=== PATIENT | male | born 1945 | race Hispanic/Latino ===

== ENCOUNTER 2018-09-04 04:47 | Inpatient (IN) | payer MEDICARE, MEDICAID ==
[2018-09-04] MEDS ORDERED: hydrALAZINE 20 MG/ML VIAL SLOW IVP PRN (07:51)
--- NOTE | 2018-09-04 08:09 | RAD ---
FRONTAL RADIOGRAPH LOWER CHEST: DATE: 09/04/2018. HISTORY: Evaluate nasogastric tube. FINDINGS: A coned-down frontal radiograph of the lung bases and upper abdomen provided. Image demonstrates a n asogastric tube curling in the mid epigastric region. Lung bases and upper abdomen are not well asse ssed on this examination secondary to portable technique and field of view. Dilated loops of small b owel are seen within the imaged abdomen suggesting small bowel obstruction. IMPRESSION: Nasogastric tube as above. POS: [facility]
--- NOTE | 2018-09-04 08:10 | HP ---
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 The patient is retired. Today i s Friday and on Friday the patient began experiencing nausea. Friday he experienced nausea, vomitin g and diarrhea. He has not had a bowel movement since yesterday. In the last 48-72 hours he has exp erienced progressive abdominal distention, although has not had any vomiting in the last 24 hours and as noted above, not had a bowel movement in the last 24 hours. He was seen in [place] initiall y and evaluated. He lives in [place] with his . His daughter accompanies him to the emergency ro om this morning at [facility] [place] he was transferred. CAT scan in [place] revealed presen ce of an inferior vena cava filter and changes suggestive of possible bowel obstruction. The patient has not had any abdominal operations, has never had a colonoscopy. Bowel function was normal prior to this event. He is on Coumadin for probable hypercoagulable state and past history of DVT and 2 PE s and maintained on Coumadin. In addition, his CAT scan noted fat containing bilateral inguinal annabella ias, but there are no palpable inguinal masses and no evidence of obstructive process here. A 16 [facility] NG tube placed in [place] at 0200. The patient's INR is 2.8, PT 29.3. ALLERGIES: None. TOBACCO: None. ALCOHOL: None. MEDICATIONS: Allopurinol 100 mg a day, Coumadin 10 mg tablet. We will have to verify the dosing, Fl omax 0.4 mg a day, metoprolol 50 mg a day, Plavix 75 mg a day, amlodipine/benazepril 10/40 mg once a day a.m. PAST SURGICAL HISTORY: Hydrocelectomy 23 years ago, IVC filter placement in 2004. PAST MEDICAL HISTORY: History of DVT and PE in 2004 and another occurrence a year or two after that maintained on chronic Coumadin. He speaks [place]. His daughter translates for him and the best I c an tell, it is possible he may have a hypercoagulable state workup in [place]. The exact nature is n ot reportable or recalled by the patient. Gout, hypertension. Patient has a history of enlarged pro state and had a prostate biopsy in [place] that was negative for malignancy. CAT scan obtained in [facility] reveals an enlarged prostate. REVIEW OF SYSTEMS: Cardiopulmonary, renal, gastrointestinal no history of cardiac workup. No histor y of chest pain or cardiac symptoms. FAMILY HISTORY: Family history is negative. PHYSICAL EXAMINATION: VITAL SIGNS: Blood pressure 139/88, 108, 18, 99.3 degrees. LUNGS: Clear to auscultation. CARDIAC: Regular rate and rhythm without murmur or gallop. ABDOMEN: Soft, slightly distended, slightly tympanitic. NG tube in place. No evident hernias, umbi lical or groins. EXTREMITIES: Palpable pedal pulses, palpable femoral pulses, palpable popliteal pulses. Chronic keo ous stasis changes with stasis dermatitis and hyperpigmentation both lower extremities, lower 2/3 wit hout ankle edema and without ulcerations. LABORATORY: White count 8.6, hemoglobin 14.7, platelet count 196,000. PT 29, INR 2.8, PTT 49.8, sod ium 142, potassium 4.1, BUN 24, creatinine 1.8. GFR 37, triglycerides 244, cholesterol 219. Liver f unction tests otherwise normal. TSH normal 04/21/2018, lactic acid normal. ASSESSMENT AND PLAN: 1. Abdominal pain, distention. CAT scan suggestive of bowel obstruction, although he has not had an y prior abdominal operations. We will plan repeat abdominal x-rays and small bowel follow through to day. He had his NG tube placed in [place] at 2:00 in the morning and he has had some decompress ion since then, the amount of gastric output is not recorded at this time. Given the absence of prev ious abdominal operations and unlikely that he has any significant peritoneal adhesions to cause a mamie wel obstruction, we will obtain a small bowel follow through earlier today. 2. Therapeutic INR on Coumadin, hold his Coumadin. Past history of DVT and PE and probable hypercoa gulable state, possible lipid problems. 3. Gout. 4. Hypertension. 5. No history of colonoscopy. 6. Bilateral fat containing inguinal hernias without evidence of obstruction and clinically no palpa ble hernias on exam today. 7. Enlarged prostate with history of prior prostate biopsy negative for malignancy. 8. Mild chronic kidney disease with slight increase in his creatinine, probably related to dehydrati on over this illness lasting the past 4 days. Looking at the computer records, he has had mild chron ic kidney disease prior to this with an exacerbation from this acute illness.
[2018-09-04] MEDS ORDERED: Sodium Chloride 0.9% 1,000 ML IV SCH (08:15)
[2018-09-04] MEDS ORDERED: Pantoprazole 40 MG VIAL IVP SCH (09:00)
[2018-09-04] MEDS: Sodium Chloride 0.45% 1,000 ML IV SCH ×2 (11:35→17:55)
[2018-09-04 11:41] VITALS: BMI 31.9
--- NOTE | 2018-09-04 11:56 | RAD ---
KUB: HISTORY: Small bowel obstruction. COMPARISON: CT examination done earlier today. FINDINGS: There is air within both small and large bowel. There is small bowel dilatation noted. On CT examin ation, it is difficult to appreciate. There appears to be a substantial reduction in the degree of d ilatation of the small bowel loops. An NG tube is present with the tip in the stomach. IVC filter i s in place. There are arthritic changes in the spine. IMPRESSION: 1. Definite change in the appearance of the abdomen. The small bowel distention has largely resolve d. I do not see definitive plain film evidence for obstruction. 2. Nasogastric tube with the tip in the antrum region of the stomach. POS: [facility]
[2018-09-04 16:28] VITALS: BP 144/80; TEMP 97.7
--- NOTE | 2018-09-04 16:41 | RAD ---
SMALL BOWEL FOLLOW THROUGH: DATE: 09/04/2018. HISTORY: Small bowel obstruction. FINDINGS: Via the patient's nasogastric tube, Gastrografin was instilled. At 15 minutes, there is contrast med ia within the stomach and distended loops of small bowel within the left upper quadrant. There is mi ld progression of the contrast media into additional distended small bowel loops within the left abdo men on 30-minute and 45-minute imaging. Similar findings are seen at 1 hour. At 2 hours, there is c ontrast within multiple dilated loops of central small bowel. There appears to be a small amount of oral contrast extending into the colon by 3 hours and at 4 hour imaging there is contrast media withi n the transverse colon as well s probably a small amount of contrast media in the region of the rectu m and sigmoid colon. On 4-hour imaging, there is still significant contrast media within the multiple distended loops of s mall bowel throughout the abdomen/pelvis. IMPRESSION: Persistent dilated small bowel is seen throughout the abdomen/pelvis, with contrast media continuing to be seen within small bowel loops over 4 hours. Some contrast media does extend into the colon and thus findings are consistent with a high-grade partial small bowel obstruction. Followup KUB advise d in approximately 12 hours to evaluate for clearance. POS: [facility]
[2018-09-04] MEDS ORDERED: Enoxaparin Sodium 40 MG/0.4 ML SYRINGE SC SCH (21:00)
--- NOTE | 2018-09-07 11:54 | EKG ---
Test Reason : Blood Pressure : / mmHG Vent. Rate : 074 BPM Atrial Rate : 074 BPM P-R Int : 162 ms QRS Dur : 072 ms QT Int : 396 ms P-R-T Axes : 035 -07 001 degrees QTc Int : 439 ms Normal sinus rhythm Inferior infarct , age undetermined cannot be excluded Abnormal ECG Confirmed by MAKENZIE MAGDALENO ([id number]) on 09/07/2018 11:53:59 AM Referred By: LEEANN Confirmed By:MAKENZIE MAGDALENO
== END 2018-09-04 18:51 | disposition home or self-care (01) | DRG 390 ==
LOC: ERS 04:47 → SURG A 08:59
PROVIDERS: ADMIT Specialist; ATTEND Specialist
DX: K56.609 Unspecified intestinal obstruction, unspecified as to partial versus complete obstruction (principal); M10.9 Gout, unspecified; I12.9 Hypertensive chronic kidney disease with stage 1 through stage 4 chronic kidney disease, or unspecified chronic kidney disease; N18.9 Chronic kidney disease, unspecified; K40.90 Unilateral inguinal hernia, without obstruction or gangrene, not specified as recurrent; N40.0 Benign prostatic hyperplasia without lower urinary tract symptoms
CPT/HCPCS: 71045; 74019; 74250; 93005; 93010; C9113